=== PATIENT | female | born 1960 | race Hispanic/Latino ===

== ENCOUNTER 2017-03-15 10:54 | Emergency (ER) | payer OTHER ==
[~2017-03-15 10:54] MED LIST: ASCO500T8 PO; Docusate Sodium PO; FERR-83 PO; Ibuprofen PO; NO ACTIVE MEDS; Oxycodone/Acetaminophen PO; PREC VG
[2017-03-15 11:01] VITALS: PULSE 53; RESP 24; O2SAT 98
--- NOTE | 2017-03-15 11:23 | ED.REPORT ---
HPI-General Illness Date of Service Mar 15, 2017 ED Provider: Dr. Stephens Pt is a healthy 56 y/o female presenting to the ED c/o upper back pain w/ radiation to the L shoulder and neck onset 1 week ago, worse this morning. She woke up experiencing this pain which she attributed to sleeping in an odd position. Her pain is mildly relieved only temporarily by Advil which she purchases OTC and is worsened with movement. She has not seen a doctor for this previously. Pt denies numbness/weakness, SOB, fever. She has no medical problems and has only had appeals specialist related surgeries. There is no history of back pain or prior injuries. Nursing Notes Stated Complaint: INTENSE PAIN OF NECK RUNNING DOWN BACK/LEFT SHOULD Chief Complaint: General Complaint Nursing Notes Reviewed: Yes Allergies: Coded Allergies: No Known Allergies (Verified Allergy, Unknown, 03/15/17) Scheduled ([Docusate Sodium]) 100 MG CAPSULE 100 MG PO BID Ascorbic Acid (Vitamin C) 500 Mg Tablet 500 MG PO ONCE take at bed time with iron tablets. Estrogens Conjugated (Premarin) 1 Gm Vagcream 1 GM VG TWICE WEEKLY MONDAYS AND THURSDAYS AT BED TIME Ferrous Sulfate (Ferrous Sulfate) 325 Mg Tablet 325 MG PO DAILY Take with vitamin C tablets Scheduled PRN ([Ibuprofen]) 600 MG TABLET 600 MG PO Q6H PRN PRN For Mild Pain ([Oxycodone/Acetaminophen]) 1 TAB TABLET 1 TAB PO Q4H PRN PRN For Pain Cyclobenzaprine (Cyclobenzaprine) 10 Mg Tablet 10 MG PO TID PRN PRN Spasm Naproxen (Naproxen) 500 Mg Tab 500 MG PO BID PRN PRN For Pain Miscellaneous Medications ([No Active Meds]) General Time Seen by MD: 11:23 Chief Complaint Other (shoulder pain) Hx Obtained From: Patient Arrived By: Walk-in Sudden in Onset?: No Onset Occurred: 1 week ago Symptom Duration: Since onset Location: : Back: Neck: Shoulder left Quality: Painful Severity: Current: Moderate Severity: Maximum: Moderate Past Medical History Past Medical History Denies Past Surgical History Tubal ligation Bladder "Womb removed" Smoking History Never Smoker Ambulatory Status Independent Review of Systems Full Review of Systems Constitutional: Denies: Fever Respiratory: Denies: Shortness of breath Musculoskeletal: Reports: Back pain, Extremity pain, Joint pain, Neck pain Neurologic: Denies: Numbness, Weakness Complete sys rev & neg: except as marked. Physical Exam Vital Signs Vital Signs Date Time Temp Pulse Resp B/P Pulse Ox O2 Delivery O2 Flow Rate FiO2 03/15/17 11:49 167/93 03/15/17 11:01 36.7 53 24 98 Room Air Initial VS: Reviewed Head / Eyes: Atraumatic, Normocephalic ENT: Mucous membranes moist, Conjunctiva normal Neck: Supple, Full range of motion Respiratory: Breath sounds normal, Clear to auscultation, No respiratory distress Cardiovascular: Regular rate & rhythm, Heart sounds normal, Intact distal pulses Abdomen / GI: Soft, Non-tender Extremities: Vascular intact, Neuro intact, No swelling, No tenderness Skin: Warm, Dry, No cyanosis Psychiatric: Mood/affect normal, Behavior normal, Normal thought content General/Constitutional: Awake, Alert, No acute distress, Cooperative, Not toxic appearing Appearance / Presentation: Positive: Uncomfortable Back: No midline vertebral tend Upper thoracic tenderness Paraspinal muscle tenderness Neurologic: Oriented X3, Speech NL, No motor deficits, No sensory deficits, CN II - XII intact, Memory NL Interpretation & Diagnostics Lab Results Interpretation Result Diagram: 03/15/17 1150 03/15/17 1150 Test 03/15/17 11:50 White Blood Count 5.1th/mm3 (3.8-10.1) Red Blood Count 4.65mil/mm3 (3.90-5.20) Hemoglobin 13.7g/dL (12.0-15.6) Hematocrit 41.2% (35.0-46.0) Mean Corpuscular Volume 88.6fL (81-100) Mean Corpuscular Hemoglobin 29.5pg (27.0-35.0) Mean Corpuscular Hemoglobin Concent 33.3% (32.0-37.0) Red Cell Distribution Width 13.8% (12.3-15.4) Platelet Count 293bil/L (150-400) Neutrophils (%) (Auto) 48.2% (40-74) Lymphocytes (%) (Auto) 40.1% (14-46) Monocytes (%) (Auto) 8.6% (4-12) Eosinophils (%) (Auto) 2.9% (0-5) Basophils (%) (Auto) 0.2% (0-3) Erythrocyte Sedimentation Rate 17mm/hr (0-40) Sodium Level 141mEq/L (134-144) Potassium Level 4.3mEq/L (3.5-5.2) Chloride Level 102mEq/L (97-108) Carbon Dioxide Level 24mmol/L (18-29) Blood Urea Nitrogen 15mg/dL (6-24) Creatinine 0.66mg/dL (0.57-1.00) Estimat Glomerular Filtration Rate 132mL/min (>59) Glucose Level 111mg/dL (60-99) Calcium Level 9.5mg/dL (8.5-10.1) Hold Martinez Top Tube Received (Received) ECG Interpretation ECG Interpretation: Sinus rhythm rate 54 Time: 11:49 Interpreted by: ED physician Normal ECG Interpretation: No acute ischemic changes Re-Eval/Medical Decision Med Decision/Clinical Course No evidence of trauma, exam not consistent with acute compressive spinal cord pathology. Basic labs performed to exclude an infectious process. Patient feeling better after Toradol. Will be discharged on naproxen and cyclobenzaprine. Return and follow-up precautions given. Time of Eval: 12:29 Re-Evaluation/Progress Note: Pt rechecked. Informed pt of plan for discharge. Pt understands and agrees with plan for discharge. F/U instructions and RTER warnings given. All questions addressed. Counseled Regarding: Diagnosis, Need for follow-up, When/why to return to ED Discharge & Departure Primary Impression: Strain of thoracic region Encounter type: initial encounter Qualified Code: S29.019A - Strain of muscle and tendon of unspecified wall of thorax, initial encounter Disposition: Home Discharge Condition All VS Reviewed: Yes Condition: Stable Additional Instructions: Your labs are reassuring. It is unlikely that you have an infection or any broken bones in your back. Take naproxen twice daily as well as cyclobenzaprine and Tylenol to help with your pain. Call your primary care doctor in the morning for a close follow-up appointment and reevaluation. Return to the ER as needed for progressive numbness or weakness, high fever, intractable pain or other concerns. ------- Jazz laboratorios son tranquilizadores. Es poco probable que tenga maile infeccin o cualquier hueso roto en la espalda. [place] naproxen dos veces al da, as sandie cyclobenzaprine y Tylenol para ayudar con cat dolor. Llame a cat mdico de atencin primaria por la maana para maile garth de seguimiento y maile reevaluacin cercana. Vuelva a la kaya de emergencia segn sea necesario para entumecimiento progresivo o debilidad, fiebre deion, dolor intratable u otras preocupaciones. Referrals: Ashley Huff MD (PCP) Scribe Attestation Portions of this note were transcribed by Marco Nielsen. I, Dr. Stephens personally performed the history, physical exam and medical decision-making; I reviewed and confirmed the accuracy of the information in the transcribed note. copies to: Ashley Huff MD, Timothy S DO Mar 15, 2017 11:23 MARCO NIELSEN Mar 15, 2017 11:31
[2017-03-15 11:49] VITALS: BP 167/93
[2017-03-15 12:02] LABS: BASOPHILS % (AUTO) 0.2 % (0-3); EOSINOPHILS % (AUTO) 2.9 % (0-5); MONOCYTES % (AUTO) 8.6 % (4-12); Mean Corpuscular Hemoglobin 29.5 pg (27.0-35.0); Mean Corpuscular Volume 88.6 fL (81-100); NEUTROPHILS % (AUTO) 48.2 % (40-74); Platelet Count 293 bil/L (150-400)
[2017-03-15 12:23] LABS: ERYTHROCYTE SEDIMENTATION RATE 17 mm/hr (0-40)
[2017-03-15] MEDS ORDERED: NPR500T PO (12:26)
[2017-03-15] MEDS ORDERED: CYCL10TA9 PO (12:26)
[2017-03-15 13:06] VITALS: BP 140/63; PULSE 51; RESP 18; O2SAT 95
== END 2017-03-15 12:35 | disposition home or self-care (01) ==
LOC: SED 10:54
DX: S29.012A Strain of muscle and tendon of back wall of thorax, initial encounter (principal); M25.512 Pain in left shoulder; X58.XXXA Exposure to other specified factors, initial encounter; Y93.89 Activity, other specified; Y99.8 Other external cause status; Y92.003 Bedroom of unspecified non-institutional (private) residence as the place of occurrence of the external cause; Z79.818 Long term (current) use of other agents affecting estrogen receptors and estrogen levels; Z98.51 Tubal ligation status
CPT/HCPCS: 36415; 80048; 85025; 85651; 93005; 96372; 99284; J1885